=== PATIENT | female | born 1985 | race Caucasian/White ===

== ENCOUNTER 2017-04-15 07:13 | Emergency (ER) | payer OTHER ==
[~2017-04-15] VITALS: Ht 154.9 cm; Wt 113.0 kg
[2017-04-15] MEDS ORDERED: NAPROSYN500 MG PO (09:10)
[2017-04-15 09:21] VITALS: BP 125/71
== END 2017-04-15 09:23 | disposition home or self-care (01) ==
LOC: EME 07:13
DX: G56.01 Carpal tunnel syndrome, right upper limb (principal); F17.200 Nicotine dependence, unspecified, uncomplicated
CPT/HCPCS: 73110; 99281; 99283

== ENCOUNTER 2017-08-18 10:37 | Emergency (ER) | payer OTHER ==
[~2017-08-18] VITALS: Ht 154.9 cm; Wt 112.9 kg
[~2017-08-18 10:37] MED LIST: NAPROSYN500 MG PO
[2017-08-18 10:54] VITALS: BP 142/91
[2017-08-18] MEDS ORDERED: SUMATRIPTAN SUC50 MG PO (11:35)
== END 2017-08-18 13:10 | disposition home or self-care (01) ==
LOC: EME 10:37
DX: S90.32XA Contusion of left foot, initial encounter (principal); X58.XXXA Exposure to other specified factors, initial encounter; F17.200 Nicotine dependence, unspecified, uncomplicated
CPT/HCPCS: 73630; 99281; 99284

== ENCOUNTER → 2017-11-26 | Outpatient (CLI) | payer OTHER ==
[~2017-11-26] VITALS: Ht 152.4 cm; Wt 112.5 kg
[~2017-11-26] MED LIST changes: +BUSPAR7.5 MG PO; +CELEXA10 MG PO; +CYANOCOBAL1000 MCG/2 IM; +IMITREX50 MG PO; +LEVSIN0.125 MG PO; +NEURONTIN600 MG PO; +PRILOSEC20 MG PO; +SUMATRIPTAN SUC50 MG PO; +SYNTHROID25 MCG PO; +VITAMIN D31000 UNI2 PO; +ZANAFLEX2 M1 PO
== END | disposition home or self-care (01) ==
LOC: AMB 11:44
PROC: 0DBM8ZX Excision of Descending Colon, Via Natural or Artificial Opening Endoscopic, Diagnostic (ICD-10-PCS; principal; 2017-11-26)
DX: K60.2 Anal fissure, unspecified (principal); K64.8 Other hemorrhoids; K21.9 Gastro-esophageal reflux disease without esophagitis; K58.9 Irritable bowel syndrome, unspecified; E66.01 Morbid (severe) obesity due to excess calories; Z68.42 Body mass index [BMI] 45.0-49.9, adult; G47.30 Sleep apnea, unspecified; R70.0 Elevated erythrocyte sedimentation rate; E03.9 Hypothyroidism, unspecified; Z90.49 Acquired absence of other specified parts of digestive tract; Z90.710 Acquired absence of both cervix and uterus; F17.210 Nicotine dependence, cigarettes, uncomplicated; Z88.0 Allergy status to penicillin; Z88.5 Allergy status to narcotic agent
CPT/HCPCS: 88305; J2405

== ENCOUNTER 2017-12-18 09:32 | Emergency (ER) | payer OTHER ==
[~2017-12-18] VITALS: Ht 154.9 cm; Wt 113.0 kg
[2017-12-18 10:13] LABS: HEMATOCRIT 42.4 % (36.0-46.0); HEMOGLOBIN 14.6 G/DL (11.9-15.5); MCH 29.7 PG (29.0-34.0); MCHC 34.4 G/DL (30.0-36.0); MCV 86.2 FL (83-99); PLATELET COUNT 242 K/uL (156-360); RBC DIS.WIDTH-CV 12.8 % (11.8-14.6); RED BLOOD COUNT 4.92 M/uL (3.80-5.20); WHITE BLOOD COUNT 4.9 K/uL (4.1-10.2)
[2017-12-18 10:23] LABS: ALBUMIN 4.2 g/dL (3.2-4.8); CHLORIDE 107 mEq/L (99-109); POTASSIUM 4.1 mEq/L (3.7-5.4); SODIUM 136 mEq/L (136-147)
[2017-12-18 10:26] LABS: GLUCOSE 107 mg/dL (70-99); TOTAL PROTEIN 8.2 g/dL (6.4-8.3)
[2017-12-18 10:27] LABS: TOTAL BILIRUBIN 0.3 mg/dL (0.0-1.0)
[2017-12-18 10:29] LABS: ALKALINE PHOSPHATASE 104 IU/L (3-129); GFR ESTIMATE (CALCULATED) > 59 mL/min/
[2017-12-18 10:30] LABS: UREA NITROGEN (BUN) 10 mg/dL (9-23)
[2017-12-18 10:31] LABS: AST (GOT) 34 IU/L (2-34)
[2017-12-18 10:32] LABS: ALT (GPT) 30 IU/L (3-49)
[2017-12-18 10:32] LABS: APPEARANCE SL.HAZY ((CLEAR)); BILIRUBIN NEGATIVE; BLOOD NEGATIVE; COLOR AMBER ((YELLOW)); GLUCOSE (STRIP) NEGATIVE; KETONES NEGATIVE; LEUKOCYTES TRACE; NITRITE NEGATIVE; PROTEIN (STRIP) 30; SPECIFIC GRAVITY 1.021 (1.000-1.030); UROBILINOGEN 0.2 MG/DL (0.2-1.0)
[2017-12-18 10:36] LABS: BACTERIA RARE /HPF; EPITHELIAL CELLS 2+ /HPF; MUCUS 2+ /LPF; RED BLOOD CELLS 0-5 /HPF (0-5); UCUL ADDED? NO; WHITE BLOOD CELLS 0-5 /HPF (0-5)
[2017-12-18 13:52] LABS: C DIFF TOXIN NEGATIVE (NEGATIVE)
[2017-12-18 14:01] VITALS: BP 111/97
[2017-12-18] MEDS ORDERED: ZOFRAN ODT4 MG PO (23:52)
[2017-12-18] MEDS ORDERED: BENTYL20 MG PO (23:52)
[2017-12-18] MEDS ORDERED: ULTRAM50 MG PO (23:53)
== END 2017-12-18 14:02 | disposition left against medical advice (07) ==
LOC: EME 09:32
PROVIDERS: Nurse Practitioner Family
DX: A08.4 Viral intestinal infection, unspecified (principal); R10.11 Right upper quadrant pain; F17.200 Nicotine dependence, unspecified, uncomplicated; F32.9 Major depressive disorder, single episode, unspecified; Z87.442 Personal history of urinary calculi; Z90.49 Acquired absence of other specified parts of digestive tract; Z88.5 Allergy status to narcotic agent; Z88.0 Allergy status to penicillin
CPT/HCPCS: 80053; 81003; 83630; 85027; 87177; 87493; 99281; 99284; J3010

== ENCOUNTER 2017-12-18 20:05 | Emergency (ER) | payer OTHER ==
[~2017-12-18] VITALS: Ht 154.9 cm; Wt 111.9 kg
[2017-12-18] MEDS ORDERED: ZOFRAN ODT4 MG PO (23:52)
[2017-12-18] MEDS ORDERED: BENTYL20 MG PO (23:52)
[2017-12-18] MEDS ORDERED: ULTRAM50 MG PO (23:53)
[2017-12-19 00:07] VITALS: BP 133/89
== END 2017-12-19 00:10 | disposition home or self-care (01) ==
LOC: EME 20:05
DX: R10.11 Right upper quadrant pain (principal); K29.70 Gastritis, unspecified, without bleeding; R19.7 Diarrhea, unspecified; E66.01 Morbid (severe) obesity due to excess calories; Z68.42 Body mass index [BMI] 45.0-49.9, adult; Z90.710 Acquired absence of both cervix and uterus; Z90.49 Acquired absence of other specified parts of digestive tract; Z87.442 Personal history of urinary calculi; F17.200 Nicotine dependence, unspecified, uncomplicated
CPT/HCPCS: 74177; 80053; 81003; 84702; 85027; 99281; 99285; J1885; J7030

== ENCOUNTER → 2018-01-08 | Outpatient (CLI) | payer OTHER ==
[~2018-01-08] MED LIST changes: +BENTYL20 MG PO; +ULTRAM50 MG PO; +ZOFRAN ODT4 MG PO
== END | disposition home or self-care (01) ==
LOC: CDC 12:26
DX: Z01.810 Encounter for preprocedural cardiovascular examination (principal); G56.02 Carpal tunnel syndrome, left upper limb; M25.532 Pain in left wrist; R00.0 Tachycardia, unspecified; R94.31 Abnormal electrocardiogram [ECG] [EKG]
CPT/HCPCS: 93000

== ENCOUNTER 2018-04-09 21:21 | Emergency (ER) | payer OTHER ==
[~2018-04-09] VITALS: Ht 152.4 cm; Wt 116.3 kg
[~2018-04-09 21:21] MED LIST changes: -MOTRIN800 MG PO
[2018-04-09 22:48] LABS: HEMOGLOBIN 13.6 G/DL (11.9-15.5); MCHC 34.9 G/DL (30.0-36.0); MCV 85.9 FL (83-99); PLATELET COUNT 239 K/uL (156-360); RBC DIS.WIDTH-CV 12.9 % (11.8-14.6); RBC DIS.WIDTH-SD 40.4 % (39-53); RED BLOOD COUNT 4.54 M/uL (3.80-5.20); WHITE BLOOD COUNT 8.9 K/uL (4.1-10.2)
[2018-04-09 22:57] LABS: CHLORIDE 105 mEq/L (99-109); POTASSIUM 4.1 mEq/L (3.7-5.4); SODIUM 137 mEq/L (136-147)
[2018-04-09 22:58] LABS: GLUCOSE 91 mg/dL (70-99)
[2018-04-09 23:02] LABS: CREATININE 0.8 mg/dL (0.6-1.3); GFR ESTIMATE (CALCULATED) > 59 mL/min/
[2018-04-09 23:03] LABS: UREA NITROGEN (BUN) 12 mg/dL (9-23)
[2018-04-09] MEDS ORDERED: MOTRIN800 MG PO (23:48)
[2018-04-09 23:57] VITALS: BP 118/88
== END 2018-04-09 23:58 | disposition home or self-care (01) ==
LOC: EME 21:21
PROVIDERS: Nurse Practitioner Family
DX: R11.2 Nausea with vomiting, unspecified (principal); N83.201 Unspecified ovarian cyst, right side; F32.9 Major depressive disorder, single episode, unspecified; F17.200 Nicotine dependence, unspecified, uncomplicated; Z87.442 Personal history of urinary calculi; Z90.49 Acquired absence of other specified parts of digestive tract; Z90.711 Acquired absence of uterus with remaining cervical stump; Z98.890 Other specified postprocedural states; Z88.5 Allergy status to narcotic agent; Z88.0 Allergy status to penicillin
CPT/HCPCS: 76856; 80048; 81003; 85027

== ENCOUNTER → 2018-04-09 | Outpatient (CLI) | payer OTHER ==
[~2018-04-09] MED LIST changes: +MOTRIN800 MG PO
== END | disposition home or self-care (01) ==
LOC: CT 18:07 → RAD 18:07
DX: N85.9 Noninflammatory disorder of uterus, unspecified (principal); Z90.49 Acquired absence of other specified parts of digestive tract
CPT/HCPCS: 74176

== ENCOUNTER 2018-07-17 20:31 | Emergency (ER) | payer OTHER ==
[~2018-07-17] VITALS: Ht 154.9 cm; Wt 120.0 kg
[~2018-07-17 20:31] MED LIST changes: +MOTRIN800 MG PO
[2018-07-17] MEDS ORDERED: CLEOCIN300 MG PO (22:10)
[2018-07-17] MEDS ORDERED: TYLENOL REGULA325 MG PO (22:10)
[2018-07-17 22:24] VITALS: BP 131/90
== END 2018-07-17 22:25 | disposition home or self-care (01) ==
LOC: EME 20:31
DX: L98.8 Other specified disorders of the skin and subcutaneous tissue (principal); L08.9 Local infection of the skin and subcutaneous tissue, unspecified; F32.9 Major depressive disorder, single episode, unspecified; Z88.5 Allergy status to narcotic agent; Z88.0 Allergy status to penicillin; Z87.891 Personal history of nicotine dependence